=== PATIENT | male | born 1950 | race Caucasian/White ===

== ENCOUNTER 2023-08-10 10:17 | Outpatient (CLI) | payer MEDICARE, SELFPAY ==
--- NOTE | 2023-08-10 10:27 | ECG_ITS ---
Measurements Intervals [place] Rate: 62 P: 6 UT: 242 QRS: 94 QRSD: 106 T: 69 QT: 410 QTc: 417 Interpretive Statements SINUS RHYTHM WITH FIRST DEGREE AV BLOCK BORDERLINE RIGHT AXIS DEVIATION [QRS AXIS > 90] NO PREVIOUS ECG AVAILABLE FOR COMPARISON Electronically Signed On 08-10-2023 13:35:27 CDT by Radha Hightower MD
[2023-08-10 11:00] LABS: Anion Gap 6 mmol/L (8-16); Blood Urea Nitrogen 30 mg/dL (9-20); Calcium 9.3 mg/dL (8.4-10.2); Carbon Dioxide 30 mmol/L (22-30); Chloride 102 mmol/L (98-107); Estimated Glomerular Filt Rate > 60; Glucose 97 mg/dL (65-110); Potassium 4.7 mmol/L (3.4-5.0); Sodium 138 mmol/L (137-145)
== END 2023-08-10 10:18 | disposition home or self-care (01) ==
LOC: ANHSURGERY 10:22
PROVIDERS: Anesthesiology; Visit Provider Otolaryngology
DX: Z79.899 Other long term (current) drug therapy (principal); I10 Essential (primary) hypertension; Z01.818 Encounter for other preprocedural examination; I44.0 Atrioventricular block, first degree
CPT/HCPCS: 36415; 80048; 93005

== ENCOUNTER 2023-08-13 02:24 | Day surgery (SDC) | payer MEDICARE, SELFPAY ==
[2023-08-09 13:19] VITALS: BMI 32.3
--- NOTE | 2023-08-09 13:29 | PC.NURSE ---
PRE-OP INSTRUCTIONS, PLEASE READ CAREFULLY Report to the Outpatient Waiting Room, entrance under the green pavilion located off [facility], at time _0600_ on date _08/13/23_. Planned Procedure Time: _0730_. Time changes happen often and if your time is changed the preop area will call you the afternoon before. - You and your visitor will be asked to self-screen and do not enter if you have any COVID symptoms. - A mask is optional within the hospital at this time. Patients may have clear liquids (water, carbonated beverages, clear teas, apple juice) until 3 hours prior to surgery (0430 AM) with a maximum of 20 ounces. - No food from midnight until time of surgery Take the following medications with a SIP of water the morning of surgery: _METOPROLOL_ DO NOT STOP ANY OF YOUR OTHER PRESCRIPTION MEDICATIONS PRIOR TO SURGERY ?EXCEPT THE FOLLOWING Medications to discontinue per DR. SCHAFFER - _ASPIRIN & CLOPIDOGREL - CALL OFFICE FOR INSTRUCTIONS Please no make-up, nail tamazight, hairspray, perfume, deodorant, or body powder the day of surgery. No jewelry (including any body piercings) or valuables the day of surgery, leave them at home. Please take a shower or bath the night before, or the morning of, surgery with an antibacterial soap. Wear comfortable, loose fitting clothing. - Jewelry must be removed prior to entering the operating room. Rings and piercings that are not removed may be cut off. - The hospital will not accept responsibility for valuables. - Please leave all valuables, including medications, at home the day of surgery. If you are going home after surgery, a licensed jitney driver must drive you home. - NO public transportation without another adult if you receive anesthesia. - We recommend that an adult stay with you for 24 hours following discharge. - We also recommend that you do not drive, make important decision, drink alcoholic beverages, or take any drugs that were not prescribed by your health care provider for at least 24 hours after your discharge time. Follow any additional instructions given to you from your surgeon. If you or anyone in your household have experienced Covid symptoms in the past week, please notify your surgeon or the nurse liaison at the phone number below for possible testing. Telephone instructions given to _PATIENT__and asked if any additional questions and then verbalized understanding. Patient advised to call surgeon office or pre surgery nurse liaison [phone] if any additional questions.
[2023-08-13] VITALS (7 sets, daily range): BP systolic 143–169; BP diastolic 62–77; PULSE 62–90; RESP 12–18; TEMP 36.2; O2SAT 94–100
[2023-08-13] MEDS: ACETAMINOPHEN 500 MG TABLET 1000 MG PO (06:13)
[2023-08-13] MEDS: LACTATED RINGERS 1,000 ML 30 ML IV CONT ×2 (06:15→09:25)
[2023-08-13] MEDS: OXYMETAZOLINE HCL 0.05% NAS 15 ML BTL (*BKC) 1 SPRAY NASAL (06:19)
--- NOTE | 2023-08-13 07:07 | P.HP_ITS ---
H&P: HPI History of Present Illness Date/Time: 08/13/23 07:07 Chief Complaint: chronic sinusitis, left ETD Review of Systems Review of Systems: All systems reviewed & are unremarkable except as noted in HPI and below [facility] Social History Social History Smoking packs per day: 1 Smoking cigarettes per day: 20.0 Years smoked: 10 Smoking pack-years: 10.00 Smoking status: Former smoker Tobacco type: cigarettes Second hand tobacco smoke exposure: No Additional smoking assessment comments: [place] QUIT 1997~ Alcohol intake: current Drinks per week: 4 Substance use: never Substance use type: does not use Living arrangements: with family Spiritual care concerns: No Meds Home Medications and Allergies Home Medications Medication Instructions Recorded Confirmed Type aspirin 81 mg capsule 81 mg PO QAM 08/09/23 08/09/23 History atorvastatin 40 mg tablet 40 mg DAILY 08/09/23 08/09/23 History clopidogrel 75 mg tablet 75 mg DAILY 08/09/23 08/09/23 History hydrochlorothiazide 25 mg tablet 25 mg DAILY 08/09/23 08/09/23 History losartan 50 mg tablet 50 mg DAILY 08/09/23 08/09/23 History metoprolol tartrate 50 mg tablet 50 mg BID 08/09/23 08/09/23 History omeprazole 20 mg capsule,delayed 20 mg DAILY 08/09/23 08/09/23 History release Allergies Allergy/AdvReac Type Severity Reaction Status Date / Time No Known Allergies Allergy Verified 08/09/23 13:15 Vital Signs Vital Signs - 24 hr 08/13/23 05:57 Temperature 36.2 C L Pulse Rate 62 Respiratory Rate 18 Blood Pressure 143/62 H Pulse Oximetry 94 Oxygen Delivery Room Air Exam Narrative: Chronic pansinusitis, left middle ear effusion, deviated septum, hypertrophic turbinates. Assessment and Plan Assessment and plan (1) Chronic pansinusitis: Code(s): J32.4 - Chronic pansinusitis Status: Acute Plan Ja has chronic pansinusitis with septal deviation, turbinate hypertrophy, ETD. Here for septoplasty, FESS, left ear tube placement. r/b/a reviewed, pt understands and agrees to proceed.
--- NOTE | 2023-08-13 07:09 | WPDHPUPDATE1 ---
History and Physical Update Update Date/Time: 08/13/23 07:09 History and Physical has been reviewed, including an updated exam of the patient. There are NO changes in the patient's condition. Risks, benefits, and alternatives have been discussed and questions answered. Patient agrees to proceed with procedure.
--- NOTE | 2023-08-13 07:14 | WPDANESEPPF ---
Anes - Initial Pre Proc Eval Procedure: Operation Date: 08/13/23 07:30 Proposed Procedures p Image Guided Bilateral Frontal Sinusotomy, Bilateral Ethmoidectomy, Bilateral Sphenoidotomy, Bilateral Maxillary Antrostomy, Bilateral Turbinate Reduction - Tonny Peres MD s Septoplasty - Tonny Peres MD s Left Ear Myringotomy Tube Placememt - Tonny Peres MD Date/Time: 08/13/23 07:14 Surgeon: Tonny Peres MD Pre Op Diagnosis: Chr Sinusitis, Dev Septum, Turbinate Hypertrophy Patient Data Age: 73 Gender: M Height: 1.68 m Weight: 110.5 kg Last Vital Signs Temp 97.2 F L 08/13/23 05:57 Pulse 62 08/13/23 05:57 Resp 18 08/13/23 05:57 BP 143/62 H 08/13/23 05:57 Pulse Ox 94 08/13/23 05:57 O2 Del Method Room Air 08/13/23 05:57 Allergies Allergy/AdvReac Type Severity Reaction Status Date / Time No Known Allergies Allergy Verified 08/13/23 07:10 Home Medications Medication Instructions Recorded Confirmed Type aspirin 81 mg capsule 81 mg PO QAM 08/09/23 08/13/23 History atorvastatin 40 mg tablet 40 mg DAILY 08/09/23 08/13/23 History clopidogrel 75 mg tablet 75 mg DAILY 08/09/23 08/13/23 History hydrochlorothiazide 25 mg tablet 25 mg DAILY 08/09/23 08/13/23 History losartan 50 mg tablet 50 mg DAILY 08/09/23 08/13/23 History metoprolol tartrate 50 mg tablet 50 mg BID 08/09/23 08/13/23 History omeprazole 20 mg capsule,delayed 20 mg DAILY 08/09/23 08/13/23 History release Patient hx anesthesia problems: none Family hx anesthesia problems: none Results Review: All pre-operative results and documents have been reviewed as part of the pre-operative evaluation. [facility] Social History Social History Smoking packs per day: 1 Smoking cigarettes per day: 20.0 Years smoked: 10 Smoking pack-years: 10.00 Smoking status: Former smoker Tobacco type: cigarettes Second hand tobacco smoke exposure: No Additional smoking assessment comments: STATES QUIT 1997~ Alcohol intake: current Drinks per week: 4 Substance use: never Substance use type: does not use Living arrangements: with family Spiritual care concerns: No Anes - Eval Final PreProcedure Day of Procedure 08/13/23 07:14 Patient weight: morbidly obese Heart: regular rate and rhythm Lungs: clear to auscultation Airway: Mallampati scale class III Neurological: alert and oriented Last oral intake: >/= 8 hours ASA classification: III Emergent: no Anesthetic plan: proceed Anesthesia type and monitoring: general ETT and standard monitoring Results Review: All pre-operative results and documents have been reviewed as part of the pre-operative evaluation. Informed Consent: The patient's anesthetic plan and its attendant risks and benefits were discussed with the patient/family/POA. Questions were solicited and answers provided to the satisfaction of the patient/family/POA.
[2023-08-13] MEDS: ceFAZolin 2 GM/D5W 50 ML 2 GM/50 ML BAG IVPB (07:32)
[2023-08-13] MEDS: LIDO 1%/EPINEPHRINE 1:100,000 50 ML VIAL INFILTRATE (08:05)
[2023-08-13] MEDS: CIPROFLOXACIN HCL 0.3% OP SOLN 2.5 ML BTL 4 DROP EACH EAR (08:06)
--- NOTE | 2023-08-13 09:23 | W.PM.PROC2 ---
Procedure Note - Detailed Date of Procedure 08/13/23 Pre-op Diagnosis Chr Sinusitis, Dev Septum, Turbinate Hypertrophy Post-op Diagnosis Same Procedure Performed Bilateral frontal sinusotomy, total ethmoidectomy, sphenoidotomy, maxillary antrostomy. Left maxillary lavage. Endoscopic septoplasty, bilateral inferior turbinoplasty. Left myringotomy with tympanostomy tube placement. Surgeon Tonny Peres MD Anesthesia General Indications Chronic sinusitis, left ETD, left septal deviation Findings Left moderate septal deviation, Left serous middle ear effusion, left beveled dominguez grommet tube placed. Significant left maxillary sinus infection with purulent fluid and inflammatory tissue throughout and involving ethmoid and frontal sinus. Small right maxillary inflammatory polyps noted. Description of Procedure On the date of procedure the patient was met in the preoperative area and risk and benefits of the procedure reviewed with the patient as documented in the H&P and they elected to proceed with surgery. Patient was brought back to the operating room by the anesthesia team and underwent general endotracheal anesthesia. Once an adequate plane of anesthesia was obtained a timeout was performed to assure the patient identification the patient here to be performed were correct. They were.The patient was then prepped and draped in the normal fashion for endoscopic sinus surgery. The diffusion image guidance system was calibrated and used for the entire case. Afrin-soaked pledgets were placed in the nasal cavities bilaterally. The entire case was performed under endoscopic visualization. Attention first directed to the left ear. Under binocular microscopy, a myringotomy incision was made in the anterior-inferior quadrant. Serous effusion removed with suction. A beveled dominguez grommet tube was placed. Ear drops were applied and a cotton ball was placed in the EAC. Next, attention directed to the nose. Nasal endoscopy was performed at the beginning of the case. 1% lidocaine with 1:100,000 epinephrine was then injected into the root of the middle turbinate and lateral nasal wall. The left side was narrowed due to septal deviation.? Thus, septoplasty was required.? A left hemitransfixion incision was made in the left caudal septum and a mucoperichondrial flap was elevated in the usual fashion. The flap was elevated under endoscopic visualization and the remainder of the case was performed with endoscopic assistance. Using a D-knife, an incision was made through the cartilaginous septum with care to preserve the appropriate caudal and dorsal ?L-strut? of cartilage. The cartilage was then disarticulated from the bony-cartilaginous junction and the deviated cartilage was removed. Further deviated bone and cartilage was removed from the maxillary crest and posterior bony septum with care to avoid injury to the mucoperichondrial flap using a combination of dissection and Radha forceps. Once this was completed, the hemitransfixion incision was closed using simple interrupted 4-0 chromic suture. Attention was then directed towards the left side. The middle turbinate was medialized and the osteomeatal complex was identified with a paty probe. Using a 90 degree backbiter, the uncinate process was reflected anteriorly and removed using a combination of sharp and powered dissection. The maxillary antrostomy was then created and widened by identifying the natural ostia and opening the sinus with straight aliya-cut forceps, backbiter, and microdebrider. Purulent fluid filled the left maxillary sinus and was drained with suction and irrigated as well. Continuing with the microdebrider, the anterior ethmoid bulla was opened. Careful dissection was carried out posteriorly, through the basal lamella and posterior ethmoid cells until the sphenoid rostrum was identified. A Chandana suction bluntly identified the sphenoid os and the opening was widened with microdebrider a
[2023-08-13] MEDS: oxyCODONE HCL (*CRX) 5 MG TAB IR PO (10:55)
== END 2023-08-13 11:25 | disposition home or self-care (01) ==
PROVIDERS: Visit Provider Otolaryngology
PROC: (CPT 31257; principal; 2023-08-13 07:30)
PROC: (CPT 30520; 2023-08-13 07:30)
PROC: (CPT 31257; 2023-08-13 07:30)
DX: J32.4 Chronic pansinusitis (principal); J34.3 Hypertrophy of nasal turbinates; J34.2 Deviated nasal septum; H69.92 Unspecified Eustachian tube disorder, left ear; Z87.891 Personal history of nicotine dependence; Z79.82 Long term (current) use of aspirin; Z79.02 Long term (current) use of antithrombotics/antiplatelets; E66.01 Morbid (severe) obesity due to excess calories; Z68.39 Body mass index [BMI] 39.0-39.9, adult
CPT/HCPCS: 31257; 31276; 31256; 61782; 30520; 30140; 69436; 36415; 80048; 93005; A9270; J0690; J1100; J2405; J2704; J3010; J7120